=== PATIENT | female | born 1990 | race Caucasian/White ===

== ENCOUNTER 2021-10-20 13:09 | Emergency (ER) | payer BC ==
[2021-10-20] MEDS ORDERED: Azithromycin 250 MG Tab PO ONE (15:36)
[2021-10-20] MEDS ORDERED: predniSONE 10 MG Tab PO ONE (15:39)
[2021-10-20] MEDS ORDERED: predniSONE 20 MG Tab PO ONE (15:59)
== END 2021-10-20 16:12 | disposition home or self-care (01) ==
LOC: MW.ED 13:09
DX: R09.89 Other specified symptoms and signs involving the circulatory and respiratory systems (principal)
CPT/HCPCS: 99283; A9270

== ENCOUNTER 2023-05-07 17:39 | Emergency (ER) | payer BC ==
[2023-05-07 19:19] LABS: BASOPHILS PERCENT AUTO 0.4 % (0.0-1.5); EOSINOPHILS ABSOLUTE AUTO 0.1 K/uL (0.0-0.7); HEMATOCRIT 40.9 % (36.0-46.0); HEMOGLOBIN 13.8 g/dL (12.0-16.0); LYMPHOCYTES ABSOLUTE AUTO 2.6 K/uL (0.6-2.4); LYMPHOCYTES PERCENT AUTO 24.9 % (16.0-40.0); MEAN CORPUSCULAR HEMOGLOBIN 29.4 pg (27.0-32.0); MEAN CORPUSCULAR HGB CONC 33.7 g/dL (31.0-37.0); MEAN CORPUSCULAR VOLUME 87.2 fL (80.0-98.0); MONOCYTES ABSOLUTE AUTO 0.9 K/uL (0.0-0.8); MONOCYTES PERCENT AUTO 8.5 % (0.0-15.0); NEUTROPHILS ABSOLUTE AUTO 6.9 K/uL (1.4-5.7); NEUTROPHILS PERCENT AUTO 65.2 % (48.0-80.0); NRBC ABSOLUTE 0 K/uL; PLATELET COUNT,PLT 261 K/uL (150-400); RED BLOOD CELL COUNT 4.69 M/uL (4.30-5.90); WHITE BLOOD CELL COUNT,WBC 10.51 K/uL (4.0-11.0)
[2023-05-07 19:49] LABS: A/G RATIO 0.9 (0.9-1.6); ALANINE AMINOTRANSFERASE,ALT 17 IU/L (14-63); ALBUMIN 3.9 g/dL (3.4-5.0); ALKALINE PHOSPHATASE 70 U/L (46-116); ASPARTATE AMNIOTRANSFERASE,AST 18 IU/L (15-37); BILIRUBIN TOTAL 0.3 mg/dL (0.2-1.0); BLOOD UREA NITROGEN,BUN 9 mg/dL (7.0-18.0); CALCIUM 9.1 mg/dL (8.5-10.1); CHLORIDE,CL 100 mmol/L (98-107); CREATININE 0.7 mg/dL (0.6-1.0); EST CRCL DRUG DOSING (CG) 100.55 mL/min; GLUCOSE RANDOM 101 mg/dL (74-106); MAGNESIUM 1.8 mg/dL (1.8-2.4); POTASSIUM,K 3.8 mmol/L (3.5-5.1); PROTEIN TOTAL,TP 8.1 g/dL (6.4-8.2); SODIUM,NA 136 mmol/L (136-145)
[2023-05-07 19:52] LABS: ESTIMATED GFR 119 mL/min (>60)
== END 2023-05-07 21:19 | disposition home or self-care (01) ==
LOC: MW.ED 17:39
DX: R07.9 Chest pain, unspecified (principal)
CPT/HCPCS: 36415; 71046; 71046-26; 80053; 83735; 84484; 85025; 93005; 93010; 99283; 99285

== ENCOUNTER 2023-12-23 20:41 | Inpatient (IN) | payer BC ==
[~2023-12-23 20:41] MED LIST: Misoprostol 25 MCG (1/4 of 100 MCG) Tab VAG PRN
[2023-12-23] MEDS ORDERED: Ondansetron 4 MG/2 ML SDV IVPUSH PRN (20:54)
[2023-12-23] MEDS ORDERED: Sodium Chloride 0.9% 20 ML SDV IV PRN (20:54)
[2023-12-23] MEDS ORDERED: Sodium Chloride 0.9% 2.5 ML Syringe FLUSH PRN (20:54)
[2023-12-23] MEDS ORDERED: Tranexamic Acid IN NACL,ISO-OS 1,000 MG in Premix Bag 1 BAG IV PRN (20:54)
[2023-12-23] MEDS ORDERED: Sodium Chloride 0.9% 10 ML Syringe FLUSH PRN (20:54)
[2023-12-23] MEDS ORDERED: Misoprostol 200 MCG Tab PO PRN (20:54)
[2023-12-23] MEDS ORDERED: Terbutaline 1 MG/ML SDV SUBCUT PRN (20:54)
[2023-12-23] MEDS ORDERED: Nalbuphine 10 MG/0.5 ML Syringe IVPUSH PRN (20:54)
[2023-12-23] MEDS ORDERED: Methylergonovine 0.2 MG/1 ML Amp IM PRN (20:54)
[2023-12-23] MEDS ORDERED: Lidocaine 1% 50 ML MDV INJECT PRN (20:54)
[2023-12-23] MEDS ORDERED: Carboprost Tromethamine 250 MCG/1 mL Vial IM PRN (20:54)
[2023-12-23] MEDS ORDERED: Water For Irrigation,Sterile 1,000 ML Container IRR PRN (20:54)
[2023-12-23] MEDS ORDERED: Oxytocin/0.9 % Sodium Chloride 30 UNIT/500 ML BAG IV SCH (21:00)
[2023-12-23] MEDS: Lactated Ringers 1,000 ML IV SCH (21:00)
[2023-12-23 21:19] LABS: HEMATOCRIT 35.6 % (37.0-47.0); HEMOGLOBIN 12.3 g/dL (12.0-16.0); MEAN CORPUSCULAR HEMOGLOBIN 30.4 pg (28.0-32.0); MEAN CORPUSCULAR HGB CONC 34.6 g/dL (32.0-36.0); MEAN CORPUSCULAR VOLUME 87.9 fL (83.0-99.0); MEAN PLATELET VOLUME 10.2 fL (9.4-12.3); PLATELET COUNT,PLT 203 K/uL (150-400); RED BLOOD CELL COUNT 4.05 M/uL (4.10-5.30); WHITE BLOOD CELL COUNT,WBC 14.93 K/uL (3.9-11.3)
[2023-12-23] MEDS ORDERED: Misoprostol 25 MCG (1/4 of 100 MCG) Tab VAG PRN (21:30)
[2023-12-23] MEDS: Ampicillin 2 GM in Sodium Chloride 0.9% 100 ML IV ONE (22:12)
[2023-12-24] MEDS: Dinoprostone 10 MG Insert VAG ONE (01:25)
[2023-12-24] MEDS: Ampicillin 1 GM in Sodium Chloride 0.9% 50 ML IV SCH (02:43)
[2023-12-24] MEDS: Oxytocin/0.9 % Sodium Chloride 30 UNIT/500 ML BAG IV SCH (10:30)
[2023-12-24] MEDS ORDERED: Phenylephrine HCl 0.5 MG/5 ML AMP ONE (22:44)
[2023-12-24] MEDS ORDERED: Bupivacaine 0.5% 10 ML SDV ONE (22:44)
[2023-12-24] MEDS: Ropivacaine HCl/PF 200 ML ONE (22:58)
[2023-12-24] MEDS: Ropivacaine HCl/PF 400 MG in Premix Bag 1 BAG EPIDUR SCH (22:58)
[2023-12-24] MEDS ORDERED: Phenylephrine HCl 0.5 MG/5 ML AMP IVPUSH PRN (23:08)
[2023-12-24] MEDS ORDERED: ePHEDrine 50 MG/ML SDV IVPUSH PRN ×2 (23:08)
[2023-12-25] MEDS ORDERED: Docusate Sodium 100 MG Cap PO PRN (09:19)
[2023-12-25] MEDS ORDERED: oxyCODONE 5 MG Tab PO PRN (09:19)
[2023-12-25] MEDS ORDERED: Lanolin 100% Cream 7 GM Tube TOP PRN (09:19)
[2023-12-25] MEDS ORDERED: Acetaminophen 500 MG Tab PO PRN (09:19)
[2023-12-25 10:01] LABS: PH,UMBILICAL ARTERIAL 7.162 (7.18-7.38); PH,UMBILICAL VENOUS 7.262 (7.25-7.45)
[2023-12-25] MEDS: Witch Hazel Medicated Pads 40/Jar TOP PRN (10:43)
[2023-12-25] MEDS: Benzocaine/Menthol 20%-0.5% Spray 78 GM Cannister TOP PRN (10:43)
[2023-12-25] MEDS: Ibuprofen 800 MG Tab PO PRN (10:44)
[2023-12-26 07:06] LABS: HEMATOCRIT 34.3 % (37.0-47.0); HEMOGLOBIN 11.6 g/dL (12.0-16.0)
[2023-12-26 07:23] LABS: CALCIUM 8.2 mg/dL (8.5-10.1); CARBON DIOXIDE,CO2 22.6 mmol/L (21.0-32.0); CREATININE 0.6 mg/dL (0.6-1.0); EST CRCL DRUG DOSING (CG) 126.01 mL/min
== END 2023-12-26 14:43 | disposition home or self-care (01) | DRG 560 ==
LOC: MW.OB 20:41 → OBSVTOIN 12-25 09:27 → MW.OB 12-25 11:58
PROVIDERS: ADMIT Obstetrics & Gynecology; ATTEND Obstetrics & Gynecology
PROC: 10E0XZZ Delivery of Products of Conception, External Approach (ICD-10-PCS; principal; 2023-12-25)
PROC: 0KQM0ZZ Repair Perineum Muscle, Open Approach (ICD-10-PCS; 2023-12-25)
PROC: 3E0P7VZ Introduction of Hormone into Female Reproductive, Via Natural or Artificial Opening (ICD-10-PCS; 2023-12-25)
DX: O24.420 Gestational diabetes mellitus in childbirth, diet controlled (principal); Z3A.39 39 weeks gestation of pregnancy; Z37.0 Single live birth; O99.824 Streptococcus B carrier state complicating childbirth; O70.1 Second degree perineal laceration during delivery; O77.0 Labor and delivery complicated by meconium in amniotic fluid; O76 Abnormality in fetal heart rate and rhythm complicating labor and delivery
CPT/HCPCS: 36415; 51702; 59025; 59409; 80048; 82803; 82947; 85014; 85018; 85027; 86592; 86850; 86900; 86901; A9270-GY; J0290; J0665; J2371; J2590; J2795; J3490; J7120